=== PATIENT | male | born 1965 | race Hispanic/Latino ===

== ENCOUNTER 2017-11-14 04:36 | Emergency (ER) | payer SELFPAY | END 2017-11-14 06:50 | disposition home or self-care (01) | LOC: ERS 04:36 | DX: J10.1 Influenza due to other identified influenza virus with other respiratory manifestations (principal) | CPT/HCPCS: 99283 ==

== ENCOUNTER 2020-04-27 23:55 | Emergency (ER) | payer SELFPAY | END 2020-04-28 00:22 | disposition home or self-care (01) | LOC: ERS 23:55 | DX: I10 Essential (primary) hypertension (principal); F41.9 Anxiety disorder, unspecified | CPT/HCPCS: 99283 ==

== ENCOUNTER 2020-04-29 12:39 | Outpatient (CLI) | payer OTHER ==
--- NOTE | 2020-04-29 15:14 | RAD ---
SINUSES: Date: 04/29/2020 HISTORY: Left maxillary sinusitis with cough for several months. FINDINGS: No evidence for sinus air fluid level. Minimal sinus mucosal periosteal thickening involving the maxi llary sinuses, worse on the right side, as well as minimal opacification in the caudal portion of the medial left frontal sinus. IMPRESSION: Evidence for bilateral maxillary sinus mucosal periosteal thickening and minimal opacification in the inferomedial aspect of the left frontal sinus probably mucosal disease. No amirah air fluid level. Additional information could certainly be gained with a follow-up sinus CT scan. POS: RRE
== END 2020-04-29 12:40 | disposition home or self-care (01) ==
LOC: BICRAD 12:39
PROVIDERS: ATTEND Internal Medicine
DX: J32.0 Chronic maxillary sinusitis (principal); R93.0 Abnormal findings on diagnostic imaging of skull and head, not elsewhere classified
CPT/HCPCS: 70220

== ENCOUNTER 2021-10-18 14:08 | Emergency (ER) | payer SELFPAY | END 2021-10-18 16:15 | disposition home or self-care (01) | LOC: ERS 14:08 | DX: J20.9 Acute bronchitis, unspecified (principal); J45.909 Unspecified asthma, uncomplicated | CPT/HCPCS: 71045 ==